=== PATIENT | male | born 1955 | race Caucasian/White ===

== ENCOUNTER 2018-03-28 14:38 | Outpatient (CLI) | payer OTHER | END 2018-03-28 14:45 | disposition home or self-care (01) | LOC: LAB 14:38 | DX: G35 Multiple sclerosis (principal); E78.2 Mixed hyperlipidemia; N39.0 Urinary tract infection, site not specified; E11.9 Type 2 diabetes mellitus without complications; D68.8 Other specified coagulation defects ==